=== PATIENT | male | born 1950 | race Caucasian/White ===

== ENCOUNTER 2023-08-02 19:51 | Emergency (ER) | payer MEDICARE, SELFPAY ==
[2023-08-02] VITALS (11 sets, daily range): BP systolic 95–132; BP diastolic 63–83; PULSE 78–105; RESP 16–40; TEMP 36.4; O2SAT 93–100; BMI 24.3
--- NOTE | 2023-08-02 19:52 | XRR_ITS ---
PROCEDURE INFORMATION: Exam: XR Chest Exam date and time: 08/02/2023 8:05 PM Age: 73 years old Clinical indication: Pain; Chest pressure; Additional info: Cp TECHNIQUE: Imaging protocol: Radiologic exam of the chest. Views: 1 view. COMPARISON: No relevant prior studies available. FINDINGS: Lungs: Unremarkable. No consolidation. Pleural spaces: Unremarkable. No pleural effusion. No pneumothorax. Heart/Mediastinum: Unremarkable. No cardiomegaly. Bones/joints: Unremarkable. XR/XR chest 1V portable [id number] IMPRESSION: No acute findings.
--- NOTE | 2023-08-02 19:52 | ECG_ITS ---
[facility] Test Date: 2023-08-02 Pat Name: Mariusz Ac Department: Room: Gender: Male Lamination Builder: : 1950 Requested By: Lazarus Galeas Order Number: [id number] Jasbir MD: Neeraj Mcfarland M.D. Measurements Intervals Moody Rate: 80 P: 0 IA: 0 QRS: 44 QRSD: 100 T: 14 QT: 373 QTc: 430 Interpretive Statements ATRIAL FIBRILLATION INCOMPLETE RIGHT BUNDLE BRANCH BLOCK [90+ ms QRS DURATION, TERMINAL R IN V1/V2, 40+ ms S IN I/aVL/V4/V5/V6] ABNORMAL RHYTHM ECG No previous ECG available for comparison Electronically Signed On 08-03-2023 0:32:03 DATA WAREHOUSE ANALYST by Neeraj Mcfarland M.D. [email or web address]
--- NOTE | 2023-08-02 20:30 | CTR_ITS ---
PROCEDURE INFORMATION: Exam: CT Abdomen And Pelvis With Contrast Exam date and time: 08/02/2023 9:15 PM Age: 73 years old Clinical indication: Abdominal pain; Generalized; Additional info: Ruq pain, n/v TECHNIQUE: Imaging protocol: Computed tomography of the abdomen and pelvis with contrast. Radiation optimization: All CT scans at this facility use at least one of these dose optimization techniques: automated exposure control; mA and/or kV adjustment per patient size (includes targeted exams where dose is matched to clinical indication); or iterative reconstruction. Contrast material: OMNI 350; Contrast volume: 100 ml; Contrast route: INTRAVENOUS (IV); REPORTING DATA: Count of CT and Cardiac NM exams in prior 12 months: This patient has received 0 known CTs and 0 known cardiac nuclear medicine studies in the 12 months prior to the current study. COMPARISON: CR (CHEST, ) 08/02/2023 8:05 PM RADIATION DOSE METRICS: Total DLP (mGy-cm): 601 FINDINGS: Lungs: The visualized lung bases are clear. Diaphragm: Tiny hiatal hernia. Liver: Left hepatic 1.8 cm cyst. No enhancing mass. Gallbladder and bile ducts: No calcified gallstones or biliary dilation identified. Pancreas: Unremarkable with no suspicious mass. No ductal dilation. Spleen: The spleen is not enlarged. No suspicious enhancing mass is noted. Adrenal glands: Normal. No mass. Kidneys and ureters: Small left extrarenal pelvis likely. There is moderate right hydronephrosis, likely from compressive changes in right ureter. Stomach and bowel: The colon is rather fecal filled. No small bowel obstruction, abscess or free air. Appendix: No evidence of appendicitis. Intraperitoneal space: Unremarkable. No free air. No suspicious fluid collection. 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 This measures 11.1 x 10.7 cm x 12.7 cm in length. The opacified irregular portion is seen to the right and measures up to about 66 x 50 mm. There is irregular internal mural thrombus with surrounding mild heterogeneity and there is severe mass effect on the adjacent right iliac arteries. The left common iliac artery measures up to 42 x 34 mm. There is also contrast present in the adjacent IVC, which may imply AVF formation. The IVC is prominent in size. Mild diffuse vascular calcification. 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 The right common iliac artery measures 2.9 cm. Lymph nodes: Mild retroperitoneal lymphadenopathy. Urinary bladder: Displaced to left by aneurysm. Reproductive: The prostate is quite large. Bones/joints: No acute fracture. Soft tissues: No acute or suspicious finding noted. CT/CT abdomen pelvis w con* [id number] IMPRESSION: 1. 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 This causes severe adjacent mass effect and is detailed above. Advise emergent endovascular consultation. 2. Concern for AVF formation with the adjacent IVC, as above. This is inferred because of the density of the IVC. 3. Moderate right hydronephrosis, likely due to compression of right mid ureter by aneurysm. 4. 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 Diffuse iliac ectasia. Other aneurysms, as above. 5. Call to provider has been initiated.
--- NOTE | 2023-08-02 20:32 | ED_ITS ---
Documented by User: ABIGAIL Shook 08/02/23 23:58 HPI - Abdominal Pain 2 General: Chief Complaint: Abdominal Pain Stated Complaint: right side below rib cage pain Time Seen by Provider: 08/02/23 20:16 Source: patient and family Mode of arrival: ambulatory Limitations: no limitations History of Present Illness: Patient is a very nice 73-year-old healthy male with no known PMH who presents to ED today with complaint of right upper quadrant abdominal pain. Patient states he has intermittently had discomfort to the right side of his abdomen for 30 years that seems to be position dependent citing an example that if he sits at a desk for too long he will have to take a break and apply heat to to the area. He states approximately 2 to 3 days ago he began experiencing a fair deal of discomfort accompanied with nausea and vomiting which he has never had before. He is reporting normal bowel movements. He has no urinary symptoms. No changes to the color of his urine. No yellowing to his skin or eyes. He states he takes no medications. Denies drug use or alcohol use. Denies shortness of breath or difficulty breathing. No fevers. MD elicited complaint: abdominal pain Pertinent past history: none Onset (ago): day(s) Pain Consistency: constant Location: RUQ Severity: severe Pain scale (0-10): 8 Radiation: none Migration to: no migration Relieving factors: other (pressure to affected area possibly?) Associated Symptoms: Reports nausea and vomiting; Denies change in bowel habits, chills, dysuria, fever(s), hematochezia, hematemesis and melena Review of Systems 2 Const: Denies: fever(s), chills, body aches, fatigue or malaise ENMT: Denies: throat pain or odynophagia Card: Denies: chest pain Resp: Denies: dyspnea GI: Reports: abdominal pain, nausea and vomiting; Denies: hematemesis, change in bowel habits, hematochezia or melena : Denies: flank pain, difficulty urinating, dysuria, urinary frequency, urinary urgency or urinary hesitancy Musc: Denies: neck pain, back pain, extremity pain or joint pain Skin/Breast: Denies: rash Neuro: Denies: headache(s), numbness in extremities, weakness in extremities or sensory changes Physical Exam 2 Const: COMMON NORMALS: no acute distress, average body habitus, patient oriented x3, no limitations, healthy appearing, alert and well nourished G ENERAL APPEARANCE: cooperative ORIENTATION/CONSCIOUSNESS: Yes awake, Yes oriented to person, Yes oriented to place and Yes oriented to time HENMT: COMMON NORMALS: normocephalic and atraumatic HEAD & SCALP: normal to inspection, normocephalic and atraumatic Eye: COMMON NORMALS: no scleral icterus Chest: COMMONS NORMALS: normal inspection of the chest and normal palpation of entire chest wall Resp: COMMON NORMALS: normal respiratory effort and clear to auscultation bilaterally AUSCULTATION: clear to auscultation bilaterally Cardio: COMMON NORMALS: regular rate and regular rhythm RATE: regular rate RHYTHM: regular rhythm GI: COMMON NORMALS: Normal to inspection, nondistended, normoactive bowel sounds present, Soft to palpation, No hepatosplenomegaly present and no masses INSPECTION: Yes normal to inspection AUSCULTATION: Yes normoactive bowel sounds PALPATION: Yes Soft to palpation, Yes Tenderness to palpation present (GI) (states palpation seems to ease his discomfort slightly ) Details: RUQ, No Guarding due to palpation present (GI), No Rigid due to palpation and Yes No hepatosplenomegaly present : COMMON NORMALS: Yes no CVA tenderness BLADDER/KIDNEY EXAM: Yes no CVA tenderness Back/Pelvis: COMMON NORMALS: no CVA tenderness, thoracic and lumbar spine normal to inspection and no thoracic nor lumbar tenderness Extremity: COMMON NORMALS: normal to inspection GENERAL: Yes normal exam except as noted Neuro: KASSIE COMA SCALE: document GCS findings [place] coma scale eye opening: Spontaneous [place] coma scale verbal response: Orientated [place] coma scale motor response: Obey commands [place] coma scale total score: 15 COMMON NORMALS: patient oriented x3, moves all extremities, no focal motor deficits and no sensory deficits noted SENSORIUM/ORIENTATION: Yes alert, Yes oriented to person, Yes oriented to place and Yes oriented to time Skin: COMMON NORMALS: no rashes or lesions noted GENERAL SKIN EXAM: no rashes or lesions noted Course 2 Vital Signs: Vital signs: Vital Signs Temperature 97.6 F 08/02/23 19:58 Pulse Rate 82 08/02/23 22:53 Respiratory Rate 20 H 08/02/23 22:53 Blood Pressure 129/79 08/02/23 22:53 Pulse Oximetry 98 08/02/23 22:53 Oxygen Delivery Me thod Room Air 08/02/23 22:53 MDM - Abdominal Pain Medical Decision Making This patient is a nice 73-year-old male with no known past medical history here for complaints of right upper abdominal pain that he states has been present for over 30 years although acutely worsened approximately 2 to 3 days ago and is now accompanied with nausea and vomiting. He arrives in no acute distress with stable vital signs. His blood work is completely unremarkable. 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 This was causing severe adjacent mass effect. Concern for possible AVF formation with the adjacent IVC. Dr. Galeas was immediately made aware of critical findings. Again vital signs are stable at this time. We immediately began to work on transfer. [facility] was on divert. [facility] did not have any ICU beds. There were no options to fly patient due to weather-they were not able to give us a flyable direction at this time. I was able to contact in [place] and speak to vascular surgeon Dr. Molina who accepted patient. Unfortunately current EMS transport times are a minimum of 4 hours to cloth picker patient. We contacted multiple other transport services to try to get patient transferred but were unsuccessful. We had powerhouse tender also working on transferring patient. Ultimately the family alerted us that they would like to transfer patient by private vehicle. I did not recommend this. Patient as well as both of his sons were made aware of the risk including rupture and . They verbalized understanding and proceeded with signing out AMA. We did alert who stated they would continue to hold patient's bed. ICU surgical bed 4. Patient and his sons were given detailed information on address, where to check in, bed assigned, and vascular surgeon when they arrive. Medical Records I reviewed the patient's medical records. Lab Data I reviewed the patient's lab results. 08/02/23 20:39 08/02/23 20:39 Labs/Radiology: Radiology Impressions Chest X-Ray 08/02/23 19:52 IMPRESSION: No acute findings. Abdomen/Pelvis CT 08/02/23 20:30 IMPRESSION: 1. 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 This causes severe adjacent mass effect and is detailed above. Advise emergent endovascular consultation. 2. Concern for AVF formation with the adjacent IVC, as above. This is inferred because of the density of the IVC. 3. Moderate right hydronephrosis, likely due to compression of right mid ureter by aneurysm. 4. 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 Diffuse iliac ectasia. Other aneurysms, as above. 5. Call to provider has been initiated. ADDENDUM: 08/02/[address] Green confirms report receipt via [employer] Teams internal communications. Laboratory Results WBC 6.72 10^3/uL (3.29-11.43) 08/02/23 20:39 RBC 4.01 10^6/uL (3.85-5.65) 08/02/23 20:39 Hgb 12.60 g/dL (11.27-16.99) 08/02/23 20:39 Hct 38.1 % (37-53) 08/02/23 20:39 MCV 95.0 fl (82-101) 08/02/23 20:39 MCH 31.4 pg (27-33) 08/02/23 20:39 MCHC 33.1 g/dL (30-55) 08/02/23 20:39 RDW 12.4 % (12.1-15.1) 08/02/23 20:39 Plt Count 281 10^3/cmm (157-399) 08/02/23 20:39 MPV 9.7 fL (7.4-10.4) 08/02/23 20:39 Neut % (Auto) 68.3 % 08/02/23 20:39 Lymph % (Auto) 18.3 % 08/02/23 20:39 Davi[place] % (Auto) 9.7 % 08/02/23 20:39 Eos % (Auto) 2.7 % 08/02/23 20:39 Baso % (Auto) 0.4 % 08/02/23 20:39 Neut # (Auto) 4.59 10^3/uL (1.8-7.7) 08/02/23 20:39 Lymph # (Auto) 1.2 10^3/uL (0.8-4.8) 08/02/23 20:39 Daviess # (Auto) 0.7 10^3/uL (0.2-0.9) 08/02/23 20:39 Eos # (Auto) 0.2 10^3/uL (0.0-0.8) 08/02/23 20:39 Baso # (Auto) 0.0 10^3/uL (0.0-0.1) 08/02/23 20:39 Nucleated RBC % (auto) 0 % 08/02/23 20:39 Nucleated RBCs # 0.0 /100WBC 08/02/23 20:39 PT 14.40 SECONDS (12.1-14.9) 08/02/23 20:39 INR 1.09 (0.8-1.2) 08/02/23 20:39 APTT 31.1 SECONDS (23.9-36.7) 08/02/23 20:39 Sodium 138 mmol/L (136-145) 08/02/23 20:39 Potassium 3.8 mmol/L (3.5-5.1) 08/02/23 20:39 Chloride 102 mmol/L (98-107) 08/02/23 20:39 Carbon Dioxide 27 mmol/L (22-29) 08/02/23 20:39 Anion Gap 12.8 (5-19) 08/02/23 20:39 BUN 17 mg/dL (8-23) 08/02/23 20:39 Creatinine 1.0 mg/dL (0.7-1.2) 08/02/23 20:39 GFR Calculation Not Reportable 08/02/23 20:39 Glucose 95 mg/dL (65-115) 08/02/23 20:39 POC Glucose 98 mg/dL (70-110) 08/02/23 20:53 Calculated Osmolality 287 mOsm/kg (285-295) 08/02/23 20:39 Calcium 9.2 mg/dL (8.5-10.5) 08/02/23 20:39 Total Bilirubin 0.5 mg/dL (0.15-1.2) 08/02/23 20:39 AST 18 U/L (0-40) 08/02/23 20:39 ALT 11 U/L (0-41) 08/02/23 20:39 Alkaline Phosphatase 92 U/L (40-130) 08/02/23 20:39 Total Protein 7.0 g/dL (6.6-8.7) 08/02/23 20:39 Albumin 3.8 g/dL (3.5-5.2) 08/02/23 20:39 Globulin 3.2 g/dL (1.3-4.6) 08/02/23 20:39 Lipase 18 U/L (13-60) 08/02/23 20:39 Urine Color Yellow (Yellow) 08/02/23 19:55 Urine Appearance Clear (CLEAR) 08/02/23 19:55 Urine pH 6 (5-7) 08/02/23 19:55 Ur Specific Barnum 1.010 (1.005-1.030) 08/02/23 19:55 Urine Protein Neg (Negative) 08/02/23 19:55 Urine Glucose (UA) Norm (Normal) 08/02/23 19:55 Urine Ketones Negative (Negative) 08/02/23 19:55 Urine Blood Neg (Negative) 08/02/23 19:55 Urine Nitrate Negative (Negative) 08/02/23 19:55 Urine Bilirubin Neg (Negative) 08/02/23 19:55 Urine Urobilinogen 1 mg/dL (Negative) H 08/02/23 19:55 Ur Leukocyte Esterase Negative (Negative) 08/02/23 19:55 All radiology interpretation(s) finalized by discharge Discharge Plan Discharge Patient Disposition: Left Against Medical Advice 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 Condition: Stable Coding Level of Care Code ED Radiographer Angiogram for Chg Fwd Documented by User: Lazarus Galeas MD 08/03/23 09:55 HPI - Abdominal Pain 2 General: Chief Complaint: Abdominal Pain Stated Complaint: right side below rib cage pain Time Seen by Provider: 08/02/23 20:16 Physical Exam 2 Neuro: KASSIE COMA SCALE: document GCS findings [place] coma scale total score: 15 Course 2 Vital Signs: Vital signs: Vital Signs Temperature 97.6 F 08/02/23 19:58 Pulse Rate 82 08/02/23 22:53 Respiratory Rate 20 H 12/26/23 22:53 Blood Pressure 129/79 12/26/23 22:53 Pulse Oximetry 98 08/02/23 22:53 Oxygen Delivery Me thod Room Air 08/02/23 22:53 MDM - Abdominal Pain Medical Decision Making This patient is a nice 73-year-old male with no known past medical history here for complaints of right upper abdominal pain that he states has been present for over 30 years although acutely worsened approximately 2 to 3 days ago and is now accompanied with nausea and vomiting. He arrives in no acute distress with stable vital signs. His blood work is completely unremarkable. 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 This was causing severe adjacent mass effect. Concern for possible AVF formation with the adjacent IVC. Dr. Galeas was immediately made aware of critical findings. Again vital signs are stable at this time. We immediately began to work on transfer. [facility] was on divert. [facility] did not have any ICU beds. There were no options to fly patient due to weather-they were not able to give us a flyable direction at this time. I was able to contact in [place] and speak to vascular surgeon Dr. Molina who accepted patient. Unfortunately current EMS transport times are a minimum of 4 hours to cloth picker patient. We contacted multiple other transport services to try to get patient transferred but were unsuccessful. We had powerhouse tender also working on transferring patient. Ultimately the family alerted us that they would like to transfer patient by private vehicle. I did not recommend this. Patient as well as both of his sons were made aware of the risk including rupture and . They verbalized understanding and proceeded with signing out AMA. We did alert who stated they would continue to hold patient's bed. ICU surgical bed 4. Patient and his sons were given detailed information on address, where to check in, bed assigned, and vascular surgeon when they arrive. I have seen patient with above midlevel I discussed him to his CT findings and would have to transfer discussed him that it was going to likely be a delayed transfer as well Lab Data 08/02/23 20:39 08/02/23 20:39 Labs/Radiology: Radiology Impressions Chest X-Ray 08/02/23 19:52 IMPRESSION: No acute findings. Abdomen/Pelvis CT 08/02/23 20:30 IMPRESSION: 1. 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 This causes severe adjacent mass effect and is detailed above. Advise emergent endovascular consultation. 2. Concern for AVF formation with the adjacent IVC, as above. This is inferred because of the density of the IVC. 3. Moderate right hydronephrosis, likely due to compression of right mid ureter by aneurysm. 4. 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 Diffuse iliac ectasia. Other aneurysms, as above. 5. Call to provider has been initiated. ADDENDUM: 08/02/232207 Provider Dr. Green confirms report receipt via [employer] internal communications. Laboratory Results WBC 6.72 10^3/uL (3.29-11.43) 08/02/23 20:39 RBC 4.01 10^6/uL (3.85-5.65) 08/02/23 20:39 Hgb 12.60 g/dL (11.27-16.99) 08/02/23 20:39 Hct 38.1 % (37-53) 08/02/23 20:39 MCV 95.0 fl (82-101) 08/02/23 20:39 MCH 31.4 pg (27-33) 08/02/23 20:39 MCHC 33.1 g/dL (30-55) 08/02/23 20:39 RDW 12.4 % (12.1-15.1) 08/02/23 20:39 Plt Count 281 10^3/cmm (157-399) 08/02/23 20:39 MPV 9.7 fL (7.4-10.4) 08/02/23 20:39 Neut % (Auto) 68.3 % 08/02/23 20:39 Lymph % (Auto) 18.3 % 08/02/23 20:39 [place] % (Auto) 9.7 % 08/02/23 20:39 Eos % (Auto) 2.7 % 08/02/23 20:39 Baso % (Auto) 0.4 % 08/02/23 20:39 Neut # (Auto) 4.59 10^3/uL (1.8-7.7) 08/02/23 20:39 Lymph # (Auto) 1.2 10^3/uL (0.8-4.8) 08/02/23 20:39 [place] # (Auto) 0.7 10^3/uL (0.2-0.9) 08/02/23 20:39 Eos # (Auto) 0.2 10^3/uL (0.0-0.8) 08/02/23 20:39 Baso # (Auto) 0.0 10^3/uL (0.0-0.1) 08/02/23 20:39 Nucleated RBC % (auto) 0 % 08/02/23 20:39 Nucleated RBCs # 0.0 /100WBC 08/02/23 20:39 PT 14.40 SECONDS (12.1-14.9) 08/02/23 20:39 INR 1.09 (0.8-1.2) 08/02/23 20:39 APTT 31.1 SECONDS (23.9-36.7) 08/02/23 20:39 Sodium 138 mmol/L (136-145) 08/02/23 20:39 Potassium 3.8 mmol/L (3.5-5.1) 08/02/23 20:39 Chloride 102 mmol/L (98-107) 08/02/23 20:39 Carbon Dioxide 27 mmol/L (22-29) 08/02/23 20:39 Anion Gap 12.8 (5-19) 08/02/23 20:39 BUN 17 mg/dL (8-23) 08/02/23 20:39 Creatinine 1.0 mg/dL (0.7-1.2) 08/02/23 20:39 GFR Calculation Not Reportable 08/02/23 20:39 Glucose 95 mg/dL (65-115) 08/02/23 20:39 POC Glucose 98 mg/dL (70-110) 08/02/23 20:53 Calculated Osmolality 287 mOsm/kg (285-295) 08/02/23 20:39 Calcium 9.2 mg/dL (8.5-10.5) 08/02/23 20:39 Total Bilirubin 0.5 mg/dL (0.15-1.2) 08/02/23 20:39 AST 18 U/L (0-40) 08/02/23 20:39 ALT 11 U/L (0-41) 08/02/23 20:39 Alkaline Phosphatase 92 U/L (40-130) 08/02/23 20:39 Total Protein 7.0 g/dL (6.6-8.7) 08/02/23 20:39 Albumin 3.8 g/dL (3.5-5.2) 08/02/23 20:39 Globulin 3.2 g/dL (1.3-4.6) 08/02/23 20:39 Lipase 18 U/L (13-60) 08/02/23 20:39 Urine Color Yellow (Yellow) 08/02/23 19:55 Urine Appearance Clear (CLEAR) 08/02/23 19:55 Urine pH 6 (5-7) 08/02/23 19:55 Ur Specific [place] 1.010 (1.005-1.030) 08/02/23 19:55 Urine Protein Neg (Negative) 08/02/23 19:55 Urine Glucose (UA) Norm (Normal) 08/02/23 19:55 Urine Ketones Negative (Negative) 08/02/23 19:55 Urine Blood Neg (Negative) 08/02/23 19:55 Urine Nitrate Negative (Negative) 08/02/23 19:55 Urine Bilirubin Neg (Negative) 08/02/23 19:55 Urine Urobilinogen 1 mg/dL (Negative) H 08/02/23 19:55 Ur Leukocyte Esterase Negative (Negative) 08/02/23 19:55 Discharge Plan Discharge Patient Disposition: Left Against Medical Advice 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
[2023-08-02 20:45] LABS: Basophils % 0.4 %; Eosinophils # 0.2 10^3/uL (0.0-0.8); Eosinophils % 2.7 %; Hematocrit 38.1 % (37-53); Lymphocytes # 1.2 10^3/uL (0.8-4.8); Lymphocytes % 18.3 %; Mean Corpuscular HGB Conc 33.1 g/dL (30-55); Mean Corpuscular Hemoglobin 31.4 pg (27-33); Mean Platelet Volume 9.7 fL (7.4-10.4); Monocytes # 0.7 10^3/uL (0.2-0.9); Monocytes % 9.7 %; Neutrophils # 4.59 10^3/uL (1.8-7.7); Neutrophils % 68.3 %; Nucleated Red Blood Cells % 0 %; Platelet Count 281 10^3/cmm (157-399); Red Blood Count 4.01 10^6/uL (3.85-5.65); Red Cell Distribution Width 12.4 % (12.1-15.1); White Blood Count 6.72 10^3/uL (3.29-11.43)
[2023-08-02 20:56] LABS: Glucose Point of Care 98 mg/dL (70-110)
[2023-08-02 21:01] LABS: Alanine Aminotransferase 11 U/L (0-41); Albumin Level 3.8 g/dL (3.5-5.2); Alkaline Phosphatase 92 U/L (40-130); Anion Gap 12.8 (5-19); Aspartate Amino Transferase 18 U/L (0-40); Blood Urea Nitrogen 17 mg/dL (8-23); Calcium 9.2 mg/dL (8.5-10.5); Carbon Dioxide 27 mmol/L (22-29); Chloride 102 mmol/L (98-107); Globulin 3.2 g/dL (1.3-4.6); Glucose 95 mg/dL (65-115); Lipase 18 U/L (13-60); Osmolality Calculated 287 mOsm/kg (285-295); Potassium 3.8 mmol/L (3.5-5.1); Sodium 138 mmol/L (136-145); Total Bilirubin 0.5 mg/dL (0.15-1.2)
[2023-08-02 21:10] LABS: Add Urine Microscopic? NO; Charge for UA Resulting for Rev
[2023-08-02] MEDS: iohexol 350 mg/mL 500 mL Btl (per mL) IV (21:14)
[2023-08-02 21:16] LABS: Bilirubin Urine Neg (Negative); Blood Urine Neg (Negative); Glucose Urine UA Norm (Normal); Ketones Urine Negative (Negative); Leukocyte Esterase Urine Negative (Negative); Nitrate Urine Negative (Negative); Protein Urine Neg (Negative); Urine Appearance Clear (CLEAR); Urine Color Yellow (Yellow); Urobilinogen Urine 1 mg/dL (Negative); pH Urine 6 (5-7)
[2023-08-02 21:51] LABS: INR 1.09 (0.8-1.2)
[2023-08-02 21:52] LABS: Partial Thromboplastin Time 31.1 SECONDS (23.9-36.7)
--- NOTE | 2023-08-02 23:21 | PC.NURSE ---
Son and patient were informed that staff is currently working on setting up transport for pt to accepting facility. Patient made decision to leave hospital AMA via POV instead of wait for EMS/transport, and signed AMA papers at [id number]. Patient was educated by Peter and ezequiel nurse that leaving AMA was not advised by healthcare team and patient was encouraged to stay at hospital until transport could be setup; patient decided to leave regardless and verbalized understanding to all education given. During in this time multiple transport services were contacted but unable to transfer pt at this time, staff currently working on setting up transfer. Accepting facility contacted by ER staff to inform that the pt left AMA, accepting provider, Dr. Molina, verbally agreed to still accept pt to given ICU bed upon arrival via private vehicle. Pt son was given instructions on how to check in at their ER to maintain their bed.
--- NOTE | 2023-08-02 23:24 | PC.NURSE ---
Per [facility] - ambulance crew will not be able to transport pt for for 4 hours or greater. [facility] declined due to weather Fixed wing declined due to fix wing [facility] declined transport [facility] declined transport [facility] transport [facility] declined [facility] Transfer Transport declined [facility] declined [facility] no Answer [facility] No transport available
--- NOTE | 2023-08-02 23:37 | PC.NURSE ---
Multiple updates given to pt and family about transfer by ER physician, ER PA and several nursing staff. Family and pt ultimately decided to leave AMA due to length of time it will take [facility] to respond for transport. PA discussed extensively the possible repercussions of leaving the hospital. Pt was A&Ox4, asked appropriate questions and made the decision to leave with appropriate decision making skills.
--- NOTE | 2023-08-02 23:48 | PC.NURSE ---
Pt signed out AMA after being accepted to [facility] in [place], [place]. ER UC, ER assembly department supervisor, and Brand Marketing Manager RN attempted contacting multiple transport services with no success to obtain transport for a life threat pt. Pt decided to leave AMA to drive to [facility] via POV, pt educated on risk of leaving AMA by provider and pt care RN, pt verbalized understanding and signed AMA paperwork. At the time of pt signing out AMA staff was still attempting to set up transport for pt. Provider talked to accepting provider stating that pt left AMA, accepting provider stated they would still accept pt. Pt son educated on the process to check in through [facility]'s ER to maintain bed and sent with paperwork to give to [facility]. Pt nurse called report to nurse at [facility] @[phone].
--- NOTE | 2023-08-02 23:55 | PC.NURSE ---
Report had been called to Birgit Colón RN at [facility] [place]. All questions and concerns addressed at time of report.
== END 2023-08-03 00:28 | disposition left against medical advice (07) ==
PROVIDERS: Emergency Provider Physician Assistant
DX: I72.3 Aneurysm of iliac artery (principal); Z53.29 Procedure and treatment not carried out because of patient's decision for other reasons
CPT/HCPCS: 36416; 71045; 74177; 80053; 81003; 82962; 83690; 85025; 85610; 85730; 93005; 99285; Q9967

== ENCOUNTER 2023-09-06 14:28 | Outpatient (CLI) | payer MEDICARE, SELFPAY ==
--- NOTE | 2023-09-06 14:35 | CT_ITS ---
WS: [id number] CTA THORACIC AORTA WITH AND WITHOUT CONTRAST. HISTORY: S/P R HYPOGASTRIC COILING REPAIR S/P ILIAC ARTERY REPAIR TECHNIQUE: CT imaging of the thorax is performed with and without contrast. After noncontrast imaging is performed, CT angiogram is performed during injection of Omnipaque 350; 85 mL IV.. Sagittal and c oronal reconstructions, sagittal and coronal MIP imaging is submitted. All CT scans at [facility] use at least one of these dose optimization techniques: automated exposure control; mA and/or kV adjustment per patient size (includes targeted exams where dose is matched to clinical indication); or iterative reconstruction. DLP: 2620.81 mGy.cm COMPARISON: No similar studies. Normal sized thoracic aorta. Diameter ascending aorta 3.7 cm. Normal descending aorta. Very minimal c alcified plaque and intimal thickening through the thoracic aortic arch. Great vessels are normal. Pu lmonary artery is normal. There is mild bilateral atrial enlargement. No RIGHT heart strain. No peric ardial or pleural effusion. Mediastinal and hilar lymph nodes are very slightly enlarged measuring up to 1.2 cm in short axis lizeth meter. Through the upper abdomen a simple hepatic cyst in the LEFT lobe is identified measuring 1.7 cm. Ther e is a mildly bulbous appearance of the celiac axis. Just distal to the bifurcation of the celiac axi s the diameter is 1.2 cm. No splenic artery aneurysm. 8 mm RIGHT renal cyst. Mild thoracic spondylitic changes. No bone abnormality. IMPRESSION: 1. No thoracic aortic aneurysm or dissection. 2. 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 3. Mild biatrial enlargement. 4. Indeterminate bilateral hilar and mediastinal lymph node measurements.
--- NOTE | 2023-09-06 14:43 | CTR_ITS ---
PROCEDURE INFORMATION: Exam: CTA Abdominal Aorta and Bilateral Lower Extremities (Run-off) With Contrast Exam date and time: 09/06/2023 3:39 PM Age: 73 years old Clinical indication: Screening exam; Purpose: RT hypogastric coiling repair and RT iliac artery repair; Prior surgery; Surgery date: 6+ months; Additional info: S/P R hypogastric coiling repair and iliac artery repair TECHNIQUE: Imaging protocol: Computed tomographic angiography of the of the abdominal aorta, pelvis and bilateral lower extremities with contrast. 3D rendering (Not supervised by radiologist): MIP and/or 3D reconstructed images were created by the technologist. Radiation optimization: All CT scans at this facility use at least one of these dose optimization techniques: automated exposure control; mA and/or kV adjustment per patient size (includes targeted exams where dose is matched to clinical indication); or iterative reconstruction. Contrast material: OMNI 350; Contrast volume: 95 ml; Contrast route: INTRAVENOUS (IV); COMPARISON: CT abdomen pelvis w con* [id number] 08/02/2023 9:15 PM RADIATION DOSE METRICS: Total DLP (mGy-cm): 2620 FINDINGS: Aorta: See Right iliac arteries finding. Celiac trunk and mesenteric arteries: No occlusion or significant stenosis. 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 Renal arteries: No occlusion or significant stenosis. Right iliac arteries: There is an 11 cm diameter completely thrombosed aneurysm lying in the right-side of the pelvis. The aneurysm appears to arise from the right internal iliac artery and there has been stent graft placement within the common iliac artery. The stent graft is widely patent. There is no evidence of endoleak. A 4 cm aneurysm involves the left common iliac artery. I see no sign of rupture. There is normal flow into the common femoral arteries bilaterally. I see no significant arterial disease involving either leg. Prominent superficial veins are noted in the lower legs bilaterally. Right femoral/popliteal arteries: No occlusion or significant stenosis. Right infrapopliteal arteries: No occlusion or significant stenosis. Left iliac arteries: See Right iliac arteries finding. Left femoral/popliteal arteries: No occlusion or significant stenosis. Left infrapopliteal arteries: No occlusion or significant stenosis. Liver: No mass. Gallbladder and bile ducts: Unremarkable. No calcified stones. No ductal dilation. Pancreas: Unremarkable. No mass. No ductal dilation. Spleen: Normal. No splenomegaly. Adrenal glands: Normal. No mass. Kidneys and ureters: Normal. No mass. Stomach and bowel: Unremarkable. No obstruction. No mucosal thickening. Appendix: No evidence of appendicitis. Urinary bladder: Unremarkable. No mass. Reproductive: Unremarkable as visualized. Intraperitoneal space: Unremarkable. No free air. No significant fluid collection. Lymph nodes: No lymphadenopathy. Bones/joints: No acute fracture. No dislocation. Soft tissues: Unremarkable. 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
[2023-09-06] MEDS: iohexol 350 mg/mL 500 mL Btl (per mL) IV ×2 (16:01→16:02)
== END 2023-09-06 14:29 | disposition home or self-care (01) ==
LOC: RAD 14:29
PROVIDERS: Visit Provider Clinical Nurse Specialist Adult Health
DX: I72.3 Aneurysm of iliac artery (principal); I72.8 Aneurysm of other specified arteries; Z98.890 Other specified postprocedural states; Z95.828 Presence of other vascular implants and grafts; S35.511A Injury of right iliac artery, initial encounter; X58.XXXA Exposure to other specified factors, initial encounter; I51.7 Cardiomegaly
CPT/HCPCS: 71275; 75635; Q9967

== ENCOUNTER → 2024-01-05 13:55 | Outpatient (BNVA) | payer MEDICARE, SELFPAY | PROVIDERS: Visit Provider Internal Medicine Cardiovascular Disease | DX: I48.0 Paroxysmal atrial fibrillation (principal); I72.3 Aneurysm of iliac artery; M79.89 Other specified soft tissue disorders; Z79.01 Long term (current) use of anticoagulants; Z79.82 Long term (current) use of aspirin | CPT/HCPCS: 99204 ==

== ENCOUNTER 2024-01-10 11:29 | Outpatient (CLI) | payer MEDICARE, SELFPAY ==
--- NOTE | 2024-01-10 11:34 | CT_ITS ---
WS: [id number] CTA THORACIC AORTA WITH AND WITHOUT CONTRAST HISTORY: COMMON ILLIAC ANEURYSM/SP ENDOVASCULAR ANEURYSM REPAIR TECHNIQUE: CT imaging of the thorax is performed with and without contrast. After noncontrast imaging is performed, CT angiogram is performed during injection of Omnipaque 350; 100 mL IV.. Sagittal and coronal reconstructions, sagittal and coronal MIP imaging is submitted. All CT scans at [facility] use at least one of these dose optimization techniques: automated exposure control; mA and/or k V adjustment per patient size (includes targeted exams where dose is matched to clinical indication); or iterative reconstruction. DLP: 2450.12 mGy.cm COMPARISON: 09/06/2023 Normal sized thoracic aorta. No dissection or aneurysm. Very minimal atherosclerotic plaque through t he aortic arch. Sinus of Valsalva measures 3.9 cm. Sinotubular junction 2.9 cm. Ascending aorta racquel l at 3.3 cm. Normal descending thoracic aorta diameter. There is a small amount of plaque. No dissect ion. Suprarenal aorta with mild atherosclerotic plaque. Intact celiac axis. Reidentified is a 1.5 cm aneur ysmal dilatation of the proximal celiac axis. There is no thrombus or occlusion. Normal size SMA with no thrombus. No pulmonary mass or nodule. Thin linear areas of scarring in the lingula and at the RIGHT lung base. Biatrial enlargement similar to the prior examination. No RIGHT heart strain. RIGHT ventricle is als o slightly dilated. Reidentified is indeterminate mediastinal and hilar lymph nodes. Subcarinal lymph node 1.5 cm. Largest hilar lymph node on the RIGHT is 1.4 cm. No progression since 09/06/2023. LEFT lobe hepatic cyst 1.7 cm. No adrenal mass. Thoracic spondylosis. CT/CT angio chest [id number] IMPRESSION: 1. No thoracic aortic aneurysm. 2. Mild atherosclerosis thoracic aorta. 3. Stable celiac axis aneurysm at 1.5 cm. No thrombus or occlusion. 4. Reidentified LEFT lobe hepatic cyst. 5. Continued biatrial and RIGHT ventricular enlargement.
--- NOTE | 2024-01-10 11:37 | CTR_ITS ---
PROCEDURE INFORMATION: Exam: CTA Abdominal Aorta and Bilateral Lower Extremities (Run-off) With Contrast Exam date and time: 01/10/2024 1:10 PM Age: 73 years old Clinical indication: Condition or disease; Other: Common iliac aneurysm; Prior surgery; Surgery date: 1-6 months; Surgery type: Bilat iliac aneurysm repair; Additional info: Common iliac aneurysm/sp endovascular aneurysm repair TECHNIQUE: Imaging protocol: Computed tomographic angiography of the of the abdominal aorta, pelvis and bilateral lower extremities with contrast. 3D rendering (Not supervised by radiologist): MIP and/or 3D reconstructed images were created by the technologist. Radiation optimization: All CT scans at this facility use at least one of these dose optimization techniques: automated exposure control; mA and/or kV adjustment per patient size (includes targeted exams where dose is matched to clinical indication); or iterative reconstruction. Contrast material: OMNI 350; Contrast volume: 125 ml; Contrast route: INTRAVENOUS (IV); COMPARISON: CT angio abd aorta runof [id number] 09/06/2023 3:39 PM RADIATION DOSE METRICS: Total DLP (mGy-cm): 2450.12 FINDINGS: Aorta: No aortic aneurysm. No aortic dissection. Patent aorto bi-iliac stent noted. Celiac trunk and mesenteric arteries: Stable aneurysm of the celiac trunk measuring 1.5 cm. Renal arteries: Duplicated bilateral renal arteries. The origins of the accessory arteries supplying the inferior poles of the kidneys are excluded by the aorto bi-iliac stent. Right iliac arteries: Redemonstrated right common iliac aneurysms measuring up to 2.7 cm in size with patent stent in place. Redemonstrated left common iliac aneurysm measuring 3.4 cm in size with patent stent in place. No evidence of endoleak. Similar appearance of a thrombosed 11 cm aneurysm, likely originating from the right internal iliac artery. Right femoral/popliteal arteries: No occlusion or significant stenosis. Right infrapopliteal arteries: No occlusion or significant stenosis. Left iliac arteries: No occlusion or significant stenosis. Left femoral/popliteal arteries: No occlusion or significant stenosis. Left infrapopliteal arteries: No occlusion or significant stenosis. Liver: 1.9 cm simple cyst noted in the left hepatic lobe. Gallbladder and bile ducts: Cholecystectomy. No ductal dilation. Pancreas: Unremarkable. No mass. No ductal dilation. Spleen: Normal. No splenomegaly. Adrenal glands: Normal. No mass. Kidneys and ureters: Segmental areas of hypoenhancement of the inferior poles of the kidney is supplied by the accessory renal arteries. Stomach and bowel: Unremarkable. No obstruction. No mucosal thickening. Appendix: No evidence of appendicitis. Urinary bladder: Unremarkable. No mass. Reproductive: Unremarkable as visualized. Intraperitoneal space: Unremarkable. No free air. No significant fluid collection. Lymph nodes: No lymphadenopathy. Bones/joints: No acute fracture. No dislocation. Soft tissues: Unremarkable. CT/CT angio abd aorta runof [id number] IMPRESSION: 1. Interval placement of aorto bi-iliac stent. There are bilateral accessory renal arteries supplying the inferior poles of the kidneys. The stent is covering the origins of the accessory arteries and there is associated segmental hypoenhancement of the inferior poles of the kidneys. This could progress to renal infarcts and atrophy of these regions. 2. Stable appearance of the bilateral common iliac aneurysms with patent stents in place. No evidence of endoleak. 3. Large thrombosed aneurysm in the region of the right internal iliac artery measuring 11 cm in size is not significantly changed from prior study. 4. Stable appearance of a celiac trunk aneurysm measuring 1.5 cm in size.
[2024-01-10 13:08] LABS: Blood Urea Nitrogen 19 mg/dL (8-23)
[2024-01-10] MEDS: iohexol 350 mg/mL 500 mL Btl (per mL) IV ×2 (13:42→13:43)
== END 2024-01-10 11:30 | disposition home or self-care (01) ==
LOC: RAD 11:29
PROVIDERS: Radiology Neuroradiology; Visit Provider Clinical Nurse Specialist Adult Health
DX: I72.3 Aneurysm of iliac artery (principal); I72.8 Aneurysm of other specified arteries
CPT/HCPCS: 71275; 75635; 82565; 84520; Q9967

== ENCOUNTER 2024-04-27 19:56 | Emergency (ER) | payer OTHER, SELFPAY ==
[2024-04-27 20:06] VITALS: BP 134/97; PULSE 80; RESP 18; TEMP 36.7; O2SAT 94; BMI 26.4
[2024-04-27 20:09] LABS: Basophils % 0.3 %; Eosinophils # 0.1 10^3/uL (0.0-0.8); Eosinophils % 1.9 %; Hematocrit 44.8 % (37-53); Lymphocytes # 0.6 10^3/uL (0.8-4.8); Mean Corpuscular HGB Conc 32.8 g/dL (30-55); Mean Corpuscular Hemoglobin 30.2 pg (27-33); Mean Platelet Volume 10.1 fL (7.4-10.4); Monocytes # 0.6 10^3/uL (0.2-0.9); Monocytes % 9.2 %; Neutrophils # 4.85 10^3/uL (1.8-7.7); Neutrophils % 78.4 %; Nucleated Red Blood Cells % 0 %; Platelet Count 195 10^3/cmm (157-399); Red Blood Count 4.87 10^6/uL (3.85-5.65); Red Cell Distribution Width 14.6 % (12.1-15.1); White Blood Count 6.19 10^3/uL (3.29-11.43)
[2024-04-27 20:27] LABS: Alanine Aminotransferase 12 U/L (0-41); Albumin Level 3.9 g/dL (3.5-5.2); Alkaline Phosphatase 110 U/L (40-130); Anion Gap 12.9 (5-19); Aspartate Amino Transferase 23 U/L (0-40); Blood Urea Nitrogen 15 mg/dL (8-23); Calcium 8.4 mg/dL (8.5-10.5); Carbon Dioxide 25 mmol/L (22-29); Chloride 102 mmol/L (98-107); Creatinine Clr Calc Pharmacy 78.3781; Globulin 3.4 g/dL (1.3-4.6); Glucose 114 mg/dL (65-115); Lipase 17 U/L (13-60); Osmolality Calculated 284 mOsm/kg (285-295); Potassium 3.9 mmol/L (3.5-5.1); Sodium 136 mmol/L (136-145); Total Bilirubin 0.8 mg/dL (0.15-1.2); Total Protein 7.3 g/dL (6.6-8.7)
[2024-04-27 20:36] VITALS: BP 144/91; PULSE 95; RESP 18; O2SAT 93
--- NOTE | 2024-04-27 20:42 | ECG_ITS ---
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 Measurements Intervals [place] Rate: 74 P: 0 [place]: 0 QRS: -40 QRSD: 101 T: 50 QT: 381 QTc: 423 Interpretive Statements ATRIAL FIBRILLATION LEFT AXIS DEVIATION [QRS AXIS < -30] INCOMPLETE RIGHT BUNDLE BRANCH BLOCK [90+ ms QRS DURATION, TERMINAL R IN V1/V2, 40+ ms S IN I/aVL/V4/V5/V6] Compared to ECG 08/02/2023 20:48:01 Left-axis deviation now present Electronically Signed On 04-28-2024 20:06:26 CDT by Neeraj Mcfarland M.D. [id number] f
--- NOTE | 2024-04-27 20:44 | CTR_ITS ---
PROCEDURE INFORMATION: Exam: CTA Abdominal Aorta and Bilateral Lower Extremities (Run-off) With Contrast Exam date and time: 04/27/2024 9:06 PM Age: 74 years old Clinical indication: Prior surgery; Surgery date: 6+ months; Surgery type: Aortic endograft; Patient HX: C/O dizziness with n/v and dyspnea upon exertion. Patient states he had similar symptoms with iliac aneurysmal leak. History of 11cm RT iliac aneurysm. ; Additional info: Nausea, dizzy, assess for endoleak TECHNIQUE: Imaging protocol: Computed tomographic angiography of the of the abdominal aorta, pelvis and bilateral lower extremities with contrast. 3D rendering (Not supervised by radiologist): MIP and/or 3D reconstructed images were created by the technologist. Radiation optimization: All CT scans at this facility use at least one of these dose optimization techniques: automated exposure control; mA and/or kV adjustment per patient size (includes targeted exams where dose is matched to clinical indication); or iterative reconstruction. Contrast material: OMNI 250; Contrast volume: 100 ml; Contrast route: INTRAVENOUS (IV); COMPARISON: CT angio abd aorta runof [id number] 01/10/2024 1:10 PM RADIATION DOSE METRICS: Total DLP (mGy-cm): 1007.64 FINDINGS: Aorta: Aorto bi-iliac artery stent with an excluded right common iliac artery 11 cm aneurysm, similar to prior exam. Celiac trunk and mesenteric arteries: Mid celiac artery 14.5 mm aneurysmal dilation with 50-60% luminal narrowing of the proximal celiac artery. Renal arteries: Bilateral lower pole renal hypoenhancement similar to prior exam with again seen bilateral accessory renal arteries supplying the inferior poles of the kidneys with the stent covering the origins of the accessory arteries. Right iliac arteries: See Aorta finding. Right femoral/popliteal arteries: Right popliteal artery and arteries of the calf are not well opacified, likely due to bolus timing. Right infrapopliteal arteries: See above. Left iliac arteries: Left common iliac artery 3 cm excluded aneurysm again seen similar to prior exam. Left femoral/popliteal arteries: Left popliteal artery and arteries of the calf are not well opacified likely due to bolus timing. Left infrapopliteal arteries: See above. Lungs: Bibasilar atelectasis. Heart: Cardiomegaly. Liver: Hepatic steatosis. Left hepatic lobe cyst. Gallbladder and biliary ducts: Unremarkable. No calcified stones. No ductal dilation. Pancreas: Unremarkable. No mass. No ductal dilation. Spleen: Normal. No splenomegaly. Adrenal glands: Normal. No mass. Kidneys and ureters: Normal. No mass. Stomach and bowel: Unremarkable. No obstruction. No mucosal thickening. Appendix: No evidence of appendicitis. Urinary bladder: Unremarkable. No mass. Reproductive: Unremarkable as visualized. Intraperitoneal space: Unremarkable. No free air. No significant fluid collection. Lymph nodes: No lymphadenopathy. Bones/joints: No acute fracture. No dislocation. Soft tissues: Small bilateral fat containing inguinal hernias without bowel or inflammation. CT/CT angio abd aorta runof [id number] IMPRESSION: 1. Bibasilar atelectasis. 2. Cardiomegaly. 3. Hepatic steatosis. 4. Left hepatic lobe cyst. 5. 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 6. Aorto bi-iliac artery stent with an excluded right common iliac artery 11 cm aneurysm, similar to prior exam. 7. Left common iliac artery 3 cm excluded aneurysm again seen similar to prior exam. 8. Small bilateral fat containing inguinal hernias without bowel or inflammation. 9. Bilateral lower pole renal hypoenhancement similar to prior exam with again seen bilateral accessory renal arteries supplying the inferior poles of the kidneys with the stent covering the origins of the accessory arteries. 10. Right popliteal artery and arteries of the calf are not well opacified, likely due to bolus timing. 11. Left popliteal artery and arteries of the calf are not well opacified likely due to bolus timing.
--- NOTE | 2024-04-27 20:45 | XRR_ITS ---
PROCEDURE INFORMATION: Exam: XR Chest Exam date and time: 04/27/2024 9:00 PM Age: 74 years old Clinical indication: Patient HX: Dyspnea with exertion; Additional info: Nausea/dizzy TECHNIQUE: Imaging protocol: Radiologic exam of the chest. Views: 1 view. COMPARISON: CT angio chest [id number] 01/10/2024 1:10 PM FINDINGS: Lungs: Unremarkable. No consolidation. Pleural spaces: Unremarkable. No pleural effusion. No pneumothorax. Heart/Mediastinum: Cardiomegaly. Bones/joints: Unremarkable. XR/XR chest 1V portable [id number] IMPRESSION: Cardiomegaly, negative for infiltrate.
--- NOTE | 2024-04-27 20:46 | W.ED.GENADLT ---
HPI - General Adult General: Chief complaint: Nausea/Vomiting/Diarrhea Stated complaint: nausea, extreme side pain Time Seen by Provider: 04/27/24 20:32 Source: patient and family Mode of arrival: ambulatory Limitations: no limitations History of Present Illness: Patient is a nice 74-year-old male who is known to me from previous encounter and presents to ED today along with family for complaints of nausea and dizziness. He states he was walking earlier today and felt nauseous and short of breath. 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 He was subsequently seen in [place] by vascular surgery and has had multiple surgeries for treatment. He currently has an aorto bi-iliac stent. Possible history of iliac/femoral bypass graft-patient is not sure and I do not have records. He continues to follow-up with his vascular surgeon Dr. Kam in [place]. He is not complaining of any leg pain, numbness, tingling. Of note, patient tells me he is supposed to be taking anticoagulation for atrial fibrillation but took himself off of this medication. Also stopped taking his metoprolol. States he does not wish to follow up with cardiology. Onset (ago): hour(s) Relieving factors: none Exacerbating factors: other (activity/walking) Associated symptoms: Reports dyspnea (when walking earlier) and nausea; Deny chest pain, headache(s), malaise, rash, syncope or vomiting Treatments prior to arrival: none Related Data Home Medications Medication Instructions Recorded Confirmed apixaban 5 mg tablet (Eliquis) 5 mg PO BID 01/05/24 aspirin 81 mg tablet,delayed 81 mg PO DAILY 01/05/24 release metoprolol tartrate 25 mg tablet 12.5 mg PO BID 01/05/24 Allergies Allergy/AdvReac Type Severity Reaction Status Date / Time No Known Allergies Allergy Verified 04/27/24 20:09 Review of Systems Const: Denies: fever(s), chills, body aches, fatigue or malaise Card: Reports: lightheadedness; Denies: chest pain, edema, syncope or pre-syncope Resp: Reports: dyspnea (when walking earlier) GI: Reports: abdominal pain and nausea; Denies: vomiting or hematemesis : Denies: flank pain, difficulty urinating, dysuria, urinary frequency, urinary urgency or urinary hesitancy Musc: Denies: neck pain, back pain, extremity pain, joint pain or joint swelling Skin/Breast: Denies: rash Neuro: Reports: dizziness; Denies: headache(s), numbness in extremities, weakness in extremities, sensory changes or difficulty walking [facility] ED PFSH: Medical History Aneurysm of internal iliac artery Physical Exam Const: COMMON NORMALS: no acute distress, average body habitus, patient oriented x3, no limitations, healthy appearing, alert and well nourished GENERAL APPEARANCE: cooperative Resp: COMMON NORMALS: normal respiratory effort and clear to auscultation bilaterally AUSCULTATION: clear to auscultation bilaterally Cardio: COMMON NORMALS: regular rate RATE: regular rate RHYTHM: abnormal rhythm irregularly irregular GI: COMMON NORMALS: Normal to inspection, nondistended, normoactive bowel sounds present, Soft to palpation, No hepatosplenomegaly present and no masses INSPECTION: Yes scar AUSCULTATION: Yes normoactive bowel sounds PALPATION: Yes Soft to palpation, No Guarding due to palpation present (GI), No Rigid due to palpation and Yes No hepatosplenomegaly present : COMMON NORMALS: Yes no CVA tenderness BLADDER/KIDNEY EXAM: Yes no CVA tenderness Back/Pelvis: COMMON NORMALS: no CVA tenderness and thoracic and lumbar spine normal to inspection Extremity: NARRATIVE EXTREMITY EXAM: distal pulses intact GENERAL: Yes normal exam except as noted Neuro: COMMON NORMALS: patient oriented x3, moves all extremities, no focal motor deficits, no sensory deficits noted and gait normal SENSORIUM/ORIENTATION: Yes alert Course Vital Signs: Vital signs: Vital Signs Temperature 98.0 F 04/27/24 20:06 Pulse Rate 78 04/27/24 21:46 Respiratory Rate 25 H 04/27/24 21:46 Blood Pressure 137/104 04/27/24 21:46 Pulse Oximetry 95 04/27/24 21:46 Oxygen Delivery Me thod Room Air 04/27/24 20:36 [facility] - General Adult Medical Decision Making Patient is a nice 74-year-old male here for complaints of nausea and dizziness. He was concerned for a possible endoleak involving his aorto bi-iliac graft. CT imaging showing no acute changes when compared to imaging in January. No endoleak. He does have a history of paroxysmal atrial fibrillation. He is supposed to be taking metoprolol and apixaban for this but has decided to discontinue both of these medications as he would like to try more holistic approach. Discussed the risk of untreated atrial fibrillation which he seems aware of as his can carrier and vascular surgeon has spoke to him about. Certainly the atrial fibrillation could cause nausea and dizziness. Imaging today also showing cardiomegaly. Discussed possibility for congestive heart failure. I would like him to follow-up with cardiology but patient states he most likely will not see them as they will just push meds . I would like him to reach out to his vascular surgeon next week and update her about his ED visit and imaging. Return ED precautions given. Medical Records I reviewed the patient's medical records. Lab Data I reviewed the patient's lab results. 04/27/24 20:04 04/27/24 20:04 Radiology Impressions Aorta w/Runoff CTA 04/27/24 20:44 IMPRESSION: 1. Bibasilar atelectasis. 2. Cardiomegaly. 3. Hepatic steatosis. 4. Left hepatic lobe cyst. 5. 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 6. Aorto bi-iliac artery stent with an excluded right common iliac artery 11 cm aneurysm, similar to prior exam. 7. Left common iliac artery 3 cm excluded aneurysm again seen similar to prior exam. 8. Small bilateral fat containing inguinal hernias without bowel or inflammation. 9. Bilateral lower pole renal hypoenhancement similar to prior exam with again seen bilateral accessory renal arteries supplying the inferior poles of the kidneys with the stent covering the origins of the accessory arteries. 10. Right popliteal artery and arteries of the calf are not well opacified, likely due to bolus timing. 11. Left popliteal artery and arteries of the calf are not well opacified likely due to bolus timing. Chest X-Ray 04/27/24 20:45 IMPRESSION: Cardiomegaly, negative for infiltrate. Chest CTA 04/27/24 20:54 IMPRESSION: 1. Negative for pulmonary embolus. 2. Scattered subcentimeter short axis nonspecific mediastinal lymph nodes. 3. Cardiomegaly. 4. Left hepatic lobe cyst. 5. Bilateral dependent atelectasis. Laboratory Results WBC 6.19 10^3/uL (3.29-11.43) 04/27/24 20:04 RBC 4.87 10^6/uL (3.85-5.65) 04/27/24 20:04 Hgb 14.70 g/dL (11.27-16.99) 04/27/24 20:04 Hct 44.8 % (37-53) 04/27/24 20:04 MCV 92.0 fl (82-101) 04/27/24 20: MCH 30.2 pg (27-33) 04/27/24 20: MCHC 32.8 g/dL (30-55) 04/27/24 20:04 RDW 14.6 % (12.1-15.1) 04/27/24 20:04 Plt Count 195 10^3/cmm (157-399) 04/27/24 20:04 MPV 10.1 fL (7.4-10.4) 04/27/24 20:04 Neut % (Auto) 78.4 % 04/27/24 20: Lymph % (Auto) 10.0 % 04/27/24 20: Levy % (Auto) 9.2 % 04/27/24 20:04 Eos % (Auto) 1.9 % 04/27/24 20:04 Baso % (Auto) 0.3 % 04/27/24 20: Neut # (Auto) 4.85 10^3/uL (1.8-7.7) 04/27/24 20: Lymph # (Auto) 0.6 10^3/uL (0.8-4.8) L 04/27/24 20: Levy # (Auto) 0.6 10^3/uL (0.2-0.9) 04/27/24 20:04 Eos # (Auto) 0.1 10^3/uL (0.0-0.8) 04/27/24 20:04 Baso # (Auto) 0.0 10^3/uL (0.0-0.1) 04/27/24 20:04 Nucleated RBC % (auto) 0 % 04/27/24 20: Nucleated RBCs # 0.0 /100WBC 04/27/24 20: Sodium 136 mmol/L (136-145) 04/27/24 20: Potassium 3.9 mmol/L (3.5-5.1) 04/27/24 20:04 Chloride 102 mmol/L (98-107) 04/27/24 20:04 Carbon Dioxide 25 mmol/L (22-29) 04/27/24 20:04 Anion Gap 12.9 (5-19) 04/27/24 20:04 BUN 15 mg/dL (8-23) 04/27/24 20:04 Creatinine 1.0 mg/dL (0.7-1.2) 04/27/24 20:04 GFR Calculation Not Reportable 04/27/24 20:04 Glucose 114 mg/dL (65-115) 04/27/24 20:04 Calculated Osmolality 284 mOsm/kg (285-295) L 04/27/24 20:04 Calcium 8.4 mg/dL (8.5-10.5) L 04/27/24 20:04 Total Bilirubin 0.8 mg/dL (0.15-1.2) 04/27/24 20:04 AST 23 U/L (0-40) 04/27/24 20:04 ALT 12 U/L (0-41) 04/27/24 20:04 Alkaline Phosphatase 110 U/L (40-130) 04/27/24 20:04 Troponin T Baseline 11 ng/L (0-15) 04/27/24 20:04 Troponin T 120 Minute 8.11 ng/L (0-15) 04/27/24 22:21 Delta Troponin T -2.89 ABS# (0-10) L 04/27/24 22:21 Total Protein 7.3 g/dL (6.6-8.7) 04/27/24 20:04 Albumin 3.9 g/dL (3.5-5.2) 04/27/24 20:04 Globulin 3.4 g/dL (1.3-4.6) 04/27/24 20:04 Lipase 17 U/L (13-60) 04/27/24 20:04 Urine Color Yellow (Yellow) 04/27/24 21:44 Urine Appearance Clear (CLEAR) 04/27/24 21:44 Urine pH 7.0 (5-7) 04/27/24 21:44 Ur Specific [place] 1.021 (1.005-1.030) 04/27/24 21:44 Urine Protein Negative (Negative) 04/27/24 21:44 Urine Glucose (UA) Negative (Normal) 04/27/24 21:44 Urine Ketones Negative (Negative) 04/27/24 21:44 Urine Blood Negative (Negative) 04/27/24 21:44 Urine Nitrate Negative (Negative) 04/27/24 21:44 Urine Bilirubin Negative (Negative) 04/27/24 21:44 Urine Urobilinogen 1.0 mg/dL (Negative) 04/27/24 21:44 Ur Leukocyte Esterase Negative (Negative) 04/27/24 21:44 Urine RBC 0-2 /hpf (0-2) 04/27/24 21:44 Urine WBC 0-5 /hpf (0-5) 04/27/24 21:44 Ur Squamous Epith Cells 0-5 /hpf (0-5) 04/27/24 21:44 Amorphous Sediment Not Reportable 04/27/24 21:44 Urine Bacteria None seen /hpf (NONE) 04/27/24 21:44 Hyaline Casts 0-4 /lpf H 04/27/24 21:44 All radiology interpretation(s) finalized by discharge Discharge Plan Discharge Patient Disposition: Home Clinical Impression: Aneurysm of common iliac artery Atrial fibrillation Qualifiers: Atrial fibrillation type: paroxysmal Qualified Code(s): I48.0 - Paroxysmal atrial fibrillation Condition: Stable Prescriptions: No Action Eliquis 5 mg tablet 5 mg PO BID metoprolol tartrate 25 mg tablet 12.5 mg PO BID aspirin 81 mg tablet,delayed release (DR/EC) 81 mg PO DAILY Discharge Orders: Discharge ED (Routine); Ordered 04/27/24 Ordered By: Erica Green Activity Restrictions/Additional Instructions: As we discussed, I would like you to reach out to your vascular surgeon next week so she can review ED visit and imaging. I will also place a case management referral for you to have further follow-up with cardiology for further evaluation of your atrial fibrillation and concern for possible congestive heart failure. Coding Level of Care Code ED Manual Lathe Machinist for Bonnie Mackenzie
[2024-04-27 20:54] VITALS: BP 144/91; PULSE 80; RESP 18; O2SAT 94
--- NOTE | 2024-04-27 20:54 | CTR_ITS ---
PROCEDURE INFORMATION: Exam: CTA Chest With Contrast Exam date and time: 04/27/2024 9:13 PM Age: 74 years old Clinical indication: Dyspnea and other: Dizziness; Prior surgery; Surgery date: 6+ months; Surgery type: Aortic endograft; Patient HX: C/O dizziness with n/v and dyspnea with exertion; Additional info: Nausea/dizzy; Dyspnea with exertion TECHNIQUE: Imaging protocol: Computed tomographic angiography of the chest with contrast. Exam focused on the arteries. 3D rendering (Not supervised by radiologist): MIP and/or 3D reconstructed images were created by the technologist. Radiation optimization: All CT scans at this facility use at least one of these dose optimization techniques: automated exposure control; mA and/or kV adjustment per patient size (includes targeted exams where dose is matched to clinical indication); or iterative reconstruction. Contrast material: OMNI 350; Contrast volume: 75 ml; Contrast route: INTRAVENOUS (IV); COMPARISON: CT angio chest [id number] 01/10/2024 1:10 PM RADIATION DOSE METRICS: Total DLP (mGy-cm): 390.03 FINDINGS: Pulmonary arteries: Normal. No pulmonary emboli. Aorta: Unremarkable. No aortic aneurysm. No aortic dissection. Lungs: Bilateral dependent atelectasis. Pleural spaces: Unremarkable. No pneumothorax. No pleural effusion. Heart: Cardiomegaly. Lymph nodes: Scattered subcentimeter short axis nonspecific mediastinal lymph nodes. Liver: Left hepatic lobe cyst. Bones/joints: Unremarkable. No acute fracture. Soft tissues: Unremarkable. CT/CT angio chest PE protcl [id number] IMPRESSION: 1. Negative for pulmonary embolus. 2. Scattered subcentimeter short axis nonspecific mediastinal lymph nodes. 3. Cardiomegaly. 4. Left hepatic lobe cyst. 5. Bilateral dependent atelectasis.
[2024-04-27 21:25] LABS: Troponin(5th) Baseline 11 ng/L (0-15)
[2024-04-27] MEDS: iohexol 350 mg/mL 500 mL Btl (per mL) IV (21:25)
[2024-04-27 21:46] VITALS: BP 137/104; PULSE 78; RESP 25; O2SAT 95
[2024-04-27 21:59] LABS: Bilirubin Urine Negative (Negative); Blood Urine Negative (Negative); Glucose Urine UA Negative (Normal); Ketones Urine Negative (Negative); Leukocyte Esterase Urine Negative (Negative); Nitrate Urine Negative (Negative); Protein Urine Negative (Negative); Specific Gravity, Urine 1.021 (1.005-1.030); Urine Appearance Clear (CLEAR); Urine Color Yellow (Yellow)
[2024-04-27 22:04] LABS: Add Urine Microscopic? YES; Bacteria Urine None Seen /hpf; Hyaline Casts Urine 0-4 /lpf; RBC Urine 0-2 /hpf (0-2); Squamous Epithelial Cell Urine 0-5 /hpf (0-5); WBC Urine 0-5 /hpf (0-5)
[2024-04-27 22:42] LABS: Troponin 5 2HR 8.11 ng/L (0-15)
[2024-04-27 22:43] LABS: Troponin 5 2HR Delta -2.89 ABS# (0-10)
[2024-04-27 23:20] VITALS: BP 134/81; PULSE 80; RESP 16; O2SAT 95
== END 2024-04-27 23:23 | disposition home or self-care (01) ==
PROVIDERS: Emergency Medicine; Emergency Provider Physician Assistant
DX: I48.0 Paroxysmal atrial fibrillation (principal); I72.3 Aneurysm of iliac artery; Z79.01 Long term (current) use of anticoagulants; Z79.82 Long term (current) use of aspirin
CPT/HCPCS: 71045; 71275; 75635; 80053; 81001; 83690; 84484; 85025; 93005; 99285

== ENCOUNTER 2024-10-15 11:57 | Outpatient (CLI) | payer OTHER, MEDICARE, SELFPAY ==
--- NOTE | 2024-10-15 12:08 | CT_ITS ---
WS: [id number] CT ANGIOGRAPHY chest, abdomen and pelvis. HISTORY: AAA, S/P ENDOVASCULAR ANEURYSM REPAIR TECHNIQUE: CT angiogram is performed during IV injection. Reformation images reviewed. All CT scans at [facility] use at least one of these dose optimization techniques: automated exposure control; mA and/or kV adjustment per patient size (includes targeted exams where dose is matched to clinical indication); or iterative reconstruction. CONTRAST: Omnipaque 350; 100 mL IV. DLP: 2143.14 mGy.cm COMPARISON: 04/27/2024, 09/06/2023 Normal size ascending thoracic aorta with a diameter of 3.7 cm. Mild atherosclerotic plaque. No aneurysm or ulcerated plaque. No dissection. Normal origins the great vessels. Subclavian arteries are normal. Moderate cardiomegaly. No pericardial or pleural effusions. Chronic emphysema. No pulmonary mass or pneumonia. Stable mediastinal and hilar lymph nodes. Very small hiatal hernia. No chest wall abnormalities. Abdominal aorta: Status post aortobiiliac artery stent with excluded RIGHT iliac artery. Patient has a known large RIGHT iliac artery aneurysm extending over a length of 12.3 cm. Aneurysm abuts and displaces the RIGHT external iliac artery and stent. No obvious enhancement within the aneurysm sac. Known mildly aneurysmal celiac axis is stable. There is also very mild ectasia of the superior mesenteric artery to 1.0 cm. No enlarging abdominal aortic aneurysm. Again noted is decreased enhancement in the lower pole of each kidney on early arterial imaging. Stent covers the accessory arteries to the lower pole of each kidney. The extent of hypoenhancement has progressed but improves with delayed imaging. No change in the occluded LEFT iliac artery aneurysm. Decreased enhancement in the femoral arteries is probably due to phase of arterial enhancement. Small hypodensities in the liver cysts. Contracted gallbladder. Normal size spleen. No adrenal mass. Negative pancreas. No intrahepatic duct dilatation. No GI tract obstruction. No ascites or adenopathy. Mild sigmoid diverticulosis without acute diverticulitis. Prostate gland is enlarged encroaching upon the urinary bladder. Bilateral fat-containing inguinal canals. CT/CT [facility] abdpe [id number] IMPRESSION: 1. Status post aortobiiliac stent graft is stable. No enlargement of the aorta or leak. 2. Large occluded versus thrombosed RIGHT iliac artery aneurysm measuring 12.3 cm. 3. Excluded LEFT common iliac artery aneurysm. No progression in size. 4. No interval change in appearance of the celiac trunk aneurysm or ectasia of the proximal SMA. 5. Decreased enhancement involving the lower poles of each kidney. Progression of hypoenhancement due to occluded accessory arteries by the stent graft. On t he delayed images there is improved enhancement in the lower pole RIGHT renal c ortex. Still hypoenhancement lower pole LEFT kidney. 6. No thoracic aortic aneurysm. 7. Cardiomegaly.
[2024-10-15 12:34] LABS: Blood Urea Nitrogen 15 mg/dL (8-23)
[2024-10-15] MEDS: iohexol 350 mg/mL 500 mL Btl (per mL) IV (12:50)
== END 2024-10-15 11:58 | disposition home or self-care (01) ==
PROVIDERS: Visit Provider Surgery Vascular Surgery
DX: Z98.890 Other specified postprocedural states (principal); R93.89 Abnormal findings on diagnostic imaging of other specified body structures; I72.3 Aneurysm of iliac artery; I72.8 Aneurysm of other specified arteries; I51.7 Cardiomegaly; I70.90 Unspecified atherosclerosis; J43.8 Other emphysema; K44.9 Diaphragmatic hernia without obstruction or gangrene; K76.89 Other specified diseases of liver; K57.30 Diverticulosis of large intestine without perforation or abscess without bleeding; N40.0 Benign prostatic hyperplasia without lower urinary tract symptoms; K40.20 Bilateral inguinal hernia, without obstruction or gangrene, not specified as recurrent
CPT/HCPCS: 71275; 74174; 82565; 84520

== ENCOUNTER 2025-07-08 01:51 | Emergency (ER) | payer MEDICARE, SELFPAY ==
[2025-07-08] VITALS (19 sets, daily range): BP systolic 88–117; BP diastolic 46–73; PULSE 63–88; RESP 22; TEMP 36.7; O2SAT 90–100; BMI 27.1
--- NOTE | 2025-07-08 01:59 | XRR_ITS ---
PROCEDURE INFORMATION: Exam: XR Chest Exam date and time: 07/08/2025 2:07 AM Age: 75 years old Clinical indication: Pain and device placement; Other vascular access device placement or adjustment; Central line, non-tunnelled; Chest pressure; EMS arrival for chest pain. Check S/P central line placement. ; Additional info: Cp SOB TECHNIQUE: Imaging protocol: Radiologic exam of the chest. Views: 1 view. COMPARISON: CT angio chest PE protcl [id number] 04/27/2024 9:13 PM FINDINGS: Tubes, catheters and devices: Right IJ catheter terminates in the right atrium. Lungs: Unremarkable. No consolidation. Pleural spaces: Unremarkable. No pleural effusion. No pneumothorax. Heart/Mediastinum: Cardiomegaly. Bones/joints: Unremarkable. XR/XR chest 1V portable [id number] IMPRESSION: No pneumonia.
--- NOTE | 2025-07-08 01:59 | ECG_ITS ---
[employer] Test Date: 2025-07-08 Pat Name: Mariusz Ac Department: Room: Gender: Male Security Program Manager: : 1950 Requested By: Sarmad Kumari Order Number: [id number] Jasbir MD: Neeraj Mcfarland M.D. Measurements Intervals Wever Rate: 81 P: 0 NM: 0 QRS: -11 QRSD: 85 T: 245 QT: 400 QTc: 465 Interpretive Statements ATRIAL FIBRILLATION INDETERMINATE AXIS POSSIBLE RIGHT VENTRICULAR CONDUCTION DELAY [RSR (QR) IN V1/V2] MARKED ST DEPRESSION, CONSIDER SUBENDOCARDIAL INJURY [0.2+ mV ST DEPRESSION] ACUTE AK Compared to ECG 04/27/2024 20:56:05 Indeterminate axis now present ST (T wave) deviation now present Left-axis deviation no longer present Incomplete right bundle-branch block no longer present Electronically Signed On 07-09-2025 20:05:43 ELECTRONIC VIDEO GAMES SERVICER by Neeraj Mcfarland M.D. [email or web address]
--- OUTSIDE RECORDS SUMMARY | 2025-07-08 02:00 | XMS_ITS | Clinical Summary ---
Author Organization [facility] Address [address] 

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
--- OUTSIDE RECORDS SUMMARY | 2025-07-08 02:00 | XMS_ITS | Encounter Summary ---
Author Organization [facility] Address [address] [place] [address] Care Team Providers Care Prep Room Supervisor Name Role Phone Unavailable Primary Care Provider Unavailabl e Encounter Details Date Type Department Care Team (Late st Contact Info) Description 07/02/2003 Outpatient Historical [facility] Wound Care [address] 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
--- OUTSIDE RECORDS SUMMARY | 2025-07-08 02:00 | XMS_ITS | Encounter Summary ---
Author Organization [facility] Address [address] [place] [address] Care Team Providers Care Stone Dresser Name Role Phone Unavailable Primary Care Provider Unavailabl e Encounter Details Date Type Department Care Team (Latest Contact Info) Description 06/26/2003 Outpatient Historical [facility] [address] [address] [facility] [address] [place] [address] Sukhdeep Iqbal MD [address] [place] [address] SURGERY FOLLOWUP, UNSPEC (Primary Dx) Social History Tobacco Use Types Packs/Day Years Used Date Smoking Tobacco: Never Assessed Sex and Gender Information Value Date Recorded Sex Assigned at Not on file 

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
--- OUTSIDE RECORDS SUMMARY | 2025-07-08 02:00 | XMS_ITS | Encounter Summary ---
Author Organization [facility] Address [address] [place] [address] Care Team Providers Care Winch Driver Name Role Phone Unavailable Primary Care Provider Unavailabl e Encounter Details Date Type Department Care Team (Latest Contact Info) Description 05/15/2003 Outpatient Historical [facility] General and Trauma Surgery[facility] [address] [address] [place] [address] Sukhdeep Iqbal MD [address] [place] [address] SURGERY FOLLOWUP, UNSPEC (Primary Dx) Social History Tobacco Use Types Packs/Day Years Used Date Smoking Tobacco: Never Assessed Sex and Gender Information Value Date Recorded Sex Assigned at Not on file 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
--- OUTSIDE RECORDS SUMMARY | 2025-07-08 02:00 | XMS_ITS | Encounter Summary ---
Author Organization [facility] Address [address] [place] [address] Care Team Providers Care Center Sales And Service Associate Name Role Phone Unavailable Primary Care Provider Unavailabl e Encounter Details Date Type Department Care Team (Late st Contact Info) Description 06/01/2003 Outpatient Historical [facility] Wound Care [address] 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
--- NOTE | 2025-07-08 02:33 | CTR_ITS ---
PROCEDURE INFORMATION: Exam: CT Head Without Contrast Exam date and time: 07/08/2025 2:47 AM Age: 75 years old Clinical indication: Altered mental status/memory loss; EMS arrival for chest pain. Patient acting confused. ; Additional info: AMS TECHNIQUE: Imaging protocol: Computed tomography of the head without contrast. Radiation optimization: All CT scans at this facility use at least one of these dose optimization techniques: automated exposure control; mA and/or kV adjustment per patient size (includes targeted exams where dose is matched to clinical indication); or iterative reconstruction. COMPARISON: No relevant prior studies available. RADIATION DOSE METRICS: Total DLP (mGy-cm): 1251.33 FINDINGS: Brain: No acute intracranial hemorrhage. No midline shift or mass effect. No acute territorial infarct. Global age-related cerebral atrophy. 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 Cerebral ventricles: No ventriculomegaly. Paranasal sinuses: Visualized sinuses are unremarkable. No fluid levels. Mastoid air cells: Visualized mastoid air cells are well aerated. Bones: Unremarkable. No acute fracture. Soft tissues: Unremarkable. CT/CT head wo con* [id number] IMPRESSION: No acute intracranial hemorrhage. No midline shift or mass effect.
[2025-07-08] MEDS: norepinephrine 4 MG/250 ML BAG 11.25 MG IV (02:35)
--- NOTE | 2025-07-08 02:38 | CTR_ITS ---
PROCEDURE INFORMATION: Exam: CTA Chest With Contrast CTA Abdomen and Pelvis With Contrast Exam date and time: 07/08/2025 2:51 AM Age: 75 years old Clinical indication: Chest pressure; Prior surgery; Surgery date: 1-6 months; Surgery type: Repair of RT iliac aneurysm in may. Aaa endograft. EMS arrival C/O chest pain describing as tearing sensation. Surgery in may for RT iliac aneurysm. ; Additional info: Chest pain, HX of aneurysm surgery pelvis TECHNIQUE: Imaging protocol: Computed tomographic angiography of the chest with contrast. Exam focused on the arteries. Computed tomographic angiography of the abdomen and pelvis with contrast. Exam focused on the arteries. 3D rendering (Not supervised by radiologist): MIP and/or 3D reconstructed images were created by the technologist. Radiation optimization: All CT scans at this facility use at least one of these dose optimization techniques: automated exposure control; mA and/or kV adjustment per patient size (includes targeted exams where dose is matched to clinical indication); or iterative reconstruction. Contrast material: OMNI 350; Contrast volume: 100 ml; Contrast route: INTRAVENOUS (IV); COMPARISON: CT [facility] abdpe [id number] 10/15/2024 12:32 PM RADIATION DOSE METRICS: Total DLP (mGy-cm): 1890.13 FINDINGS: VASCULATURE: Pulmonary arteries: No pulmonary embolism. 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 There is extension into the innominate, left common carotid artery, and left subclavian artery. No pericardial effusion. This dissection does not extend into the descending thoracic aortic arch or descending thoracic aorta. Aortoiliac stent graft of the abdominal aorta. 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 Minimally decreased perfusion of the right femoral artery, relative to the left. Celiac and mesenteric arteries: No occlusion or significant stenosis. Renal arteries: No occlusion or significant stenosis. Right iliac arteries: See Aorta finding. Left iliac arteries: No occlusion or significant stenosis. CHEST: Lungs: Atelectasis at the lung bases. Atelectasis at the lung bases. Pleural spaces: Unremarkable. No pneumothorax. No pleural effusion. Heart: See Aorta finding. Coronary arteries: The dissection flap at the origin mildly compresses the right coronary artery. Contrast is present in the right coronary artery. ABDOMEN AND PELVIS: Liver: Left hepatic cyst measures 1.9 cm. Gallbladder and biliary ducts: Unremarkable. No calcified stones. No ductal dilation. Pancreas: Unremarkable. No mass. No ductal dilation. Spleen: Unremarkable. No splenomegaly. Adrenal glands: Unremarkable. No mass. Kidneys and ureters: Unremarkable. No solid mass. No hydronephrosis. Stomach and bowel: Unremarkable. No obstruction. No mucosal thickening. Appendix: No evidence of appendicitis. Intraperitoneal space: Unremarkable. No free air. No significant fluid collection. Urinary bladder: Unremarkable. No mass. Reproductive: Unremarkable as visualized. Lymph nodes: Unremarkable. No enlarged lymph nodes. Bones/joints: Unremarkable. No acute fracture. Soft tissues: Unremarkable. CT/[facility] [id number] IMPRESSION: 1. 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 There is extension into the innominate, left common carotid artery, and left subclavian artery. No pericardial effusion. 2. The dissection flap at the origin mildly compresses the right coronary artery. Contrast is present in the right coronary artery. 3. This dissection does not extend into the descending thoracic aortic arch or descending thoracic aorta. 4. Aortoiliac stent graft of the abdominal aorta. 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 Minimally decreased perfusion of the right femoral artery, relative to the left. 5. No pulmonary embolism. COMMENT: THIS REPORT CONTAINS FINDINGS THAT MAY BE CRITICAL TO PATIENT CARE. The exam findings were verbally communicated by me to TEODORA ZHAO via telephone conference at 3:21 AM KNOCKOUT WORKER on 07/08/2025. The findings were acknowledged and understood.
[2025-07-08 02:41] LABS: Hematocrit 35.7 % (37-53); Hemoglobin 11.60 g/dL (11.27-16.99); Mean Corpuscular HGB Conc 32.5 g/dL (30-55); Mean Corpuscular Hemoglobin 31.9 pg (27-33); Mean Corpuscular Volume 98.1 fl (82-101); Nucleated Red Blood Cells % 0 %; Platelet Count 175 10^3/cmm (157-399); Red Blood Count 3.64 10^6/uL (3.85-5.65); White Blood Count 7.39 10^3/uL (3.29-11.43)
--- NOTE | 2025-07-08 02:48 | W.ED.CHESTPA ---
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 This was repaired 1 month ago. He presents with chest pain. His notes that he awoke with chest discomfort, got up and had to crawl back to bed. He seemed confused to her and generally weak. He was short of breath as well. Ambulance was called. He complained of chest pain on EMS arrival. He was not given aspirin or other anticoagulants due to his recent aortic aneurysm repair history. He continues to complain of chest pain, although his mental status is altered, and he is not answering questions other than yes or no at this point. His blood pressure has been low. He has 1 IV access in the left forearm, and IV access has been difficult. Related Data Home Medications ?Medication ?Instructions ?Recorded ?Confirmed apixaban 5 mg tablet (Eliquis) 5 mg PO BID 01/05/24 aspirin 81 mg tablet,delayed 81 mg PO DAILY 01/05/24 release metoprolol tartrate 25 mg tablet 12.5 mg PO BID 01/05/24 Allergies Allergy/AdvReac Type Severity Reaction Status Date / Time No Known Allergies Allergy Verified 04/27/24 20:09 COMM[facility]ITY [facility] ED [facility]: Medical History (Updated 07/08/25 @ 05:37 by Sarmad Manzanares DO) Aneurysm of internal iliac artery Social History Smoking and tobacco/nicotine status: never used tobacco/nicotine Physical Exam Const: EXAM LIMITATIONS: altered mental status GENERAL APPEARANCE: cooperative, in distress, lethargic and ill appearing ORIENTATION/CONSCIOUSNESS: Yes awake, Yes oriented to person, Yes oriented to place, Yes confused and Yes lethargic; not oriented to time HENMT: COMMON NORMALS: normocephalic, atraumatic and Normal external nose present HEAD & SCALP: normocephalic and atraumatic NOSE: Normal external nose present and Normal nares present Eye: COMMON NORMALS: Equal, round and reactive pupils present and EOMs intact bilaterally PUPIL: Yes Equal, round and reactive pupils present Neck/C-Spine: CERVICAL SPINE: Yes cervical ROM normal Chest: CHEST: Yes Symmetrical chest wall rise Resp: COMMON NORMALS: clear to auscultation bilaterally EFFORT & INSPECTION: Yes tachypneic and No respiratory distress AUSCULTATION: clear to auscultation bilaterally Cardio: COMMON NORMALS: regular rate and regular rhythm RATE: regular rate RHYTHM: regular rhythm GI: OTHER: RLQ incision is healed, no redness, mass, induration. No distension. no discernable tenderness. Neuro: KAMERON COMA SCALE: document GCS findings [place] coma scale eye opening: Spontaneous Kameron coma scale verbal response: Confused [place] coma scale motor response: Obey commands Kameron coma scale total score: 14 SENSORIUM/ORIENTATION: Yes oriented to person, Yes oriented to place, No oriented to time and Yes lethargic SPEECH: abnormal speech Details: garbled and stuttering SENSORY EXAM: Yes extremities (normal) MOTOR EXAM: Motor abnormalities not present and No Abnormal motor strength present Procedures Central Line Placement Right IJ: Time Out Performed: No Patient Placed on Monitor/Pulse Ox: Yes MD Prep: mask and gloves Central Line Prep: Chlorhexidine scrub Local Anesthetic: lidocaine 1% Amount of anesthesia used (mL): 3 Ultrasound Used for Placement: Yes Central Line Lumen Inserted: triple Post Procedure: sutured in place, good blood return, all ports aspirated, flushed, capped and sterile dressing applied Post Procedure X-Ray: tip of catheter in good position and no pneumothorax seen Patient Tolerated Procedure: well and no complications Complications: none Course Vital Signs: Vital signs: Vital Signs Temperature 98.1 F 07/08/25 01:59 Pulse Rate 80 07/08/25 05:13 Respiratory Rate 22 H 07/08/25 01:50 Blood Pressure 110/65 07/08/25 05:13 Pulse Oximetry 95 07/08/25 05:13 Oxygen Delivery Wv thod Nasal Cannula 07/08/25 03:55 Oxygen Flow Rate 4 07/08/25 03:55 MDM - Chest Pain Medical Decision Making EKG done on the patient's arrival was concerning for lateral ST wave depression with T wave inversion that is significant. I sent images EKG to cardiology, and consulted him. The patient does not meet true diagnosis criteria for STEMI, so it was advised to wait for preliminary labs. His blood pressure has been low, and IV access was difficult. Central line placed in the right IJ by me without complication.It appears to be in the right atrium on x-ray. X-ray shows pulmonary vascular congestion otherwise. Levophed was started at 3. Blood pressure is improved. Last blood pressure 97/68. White blood cell count is 7.4 with a hemoglobin of 11.6. Other laboratories pending. Patient is in CT currently getting CT of head for altered mental status, as well as CTA of the chest abdomen pelvis given his history of vascular problems. He is given aspirin, but Plavix and heparin are held currently. He is not anticoagulated according to his family. Patient is back from CTA. He is talking more now. His pain is improved. He is on Levophed at 3, current systolic blood pressure 114. Heart rate 79. We are turning his Levophed down to 1. CTA shows aortic root dissection that mildly compresses the right coronary artery there is contrast present in the right coronary artery. Dissection does not extend into the descending thoracic aorta arch or descending thoracic aorta. Minimally decreased perfusion in the right femoral artery relative to the left. We spoke with [facility] regarding transfer, as we do not have a CT surgeon at this facility. They declined, stating that their surgeon could not handle the root dissection of this nature, and requested transfer to [facility]. We spoke with [facility] in [place] as well, as they are the closest facility otherwise. They declined, as they only had 1 chest surgeon on-call, and he was in surgery. I spoke with Dr. Romero, CT surgeon at [facility]. He has graciously agreed to accept the patient, but notes that due to the nature of the dissection, and the distance of transfer, this patient's mortality rate is very high and it would be best to transfer to a closer facility. I spoke with [facility] in [place], which is only an hour away by Road, and their facility cannot handle this type of dissection either. For this facility, [place] is the same road distance is [place]. We have elected to go ahead with transfer to [facility] in [place]. I spoke with the ER. They have accepted the transfer as an ER to ER transfer. OR team will be contacted there. We spoke with multiple air transport services, all have declined due to icing. He will have to go by ground. He is back up to 3 on Levophed. He is on 4 L nasal cannula satting 95%. Blood pressure is 110 systolic. Heart rate is 80. He is still talking. He does not appear short of breath. Of note, the patient's family, including his , were made aware of the dire nature of his condition, the hazards of transfer, especially prolonged road transfer, and the lack of ability of closer facilities to accommodate the patient's care. They are in agreement for transfer to the [facility] lacking any other options. Lab Data 07/08/25 02:31 12 02:31 Radiology Impressions Chest X-Ray 07/08/25 01:59 IMPRESSION: No pneumonia. Head CT 07/08/25 02:33 IMPRESSION: No acute intracranial hemorrhage. No midline shift or mass effect. Chest/Abdomen/Pelvis CTA 07/08/25 02:38 IMPRESSION: 1. Positive for [place] type a dissection, which originates in the aortic root. There is extension into the innominate, left common carotid artery, and left subclavian artery. No pericardial effusion. 2. The dissection flap at the origin mildly compresses the right coronary artery. Contrast is present in the right coronary artery. 3. This dissection does not extend into the descending thoracic aortic arch or descending thoracic aorta. 4. Aortoiliac stent graft of the abdominal aorta. 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 Minimally decreased perfusion of the right femoral artery, relative to the left. 5. No pulmonary embolism. COMMENT: THIS REPORT CONTAINS FINDINGS THAT MAY BE CRITICAL TO PATIENT CARE. The exam findings were verbally communicated by me to SARMAD MANZANARES via telephone conference at 3:21 AM FLUE CLEANER on 07/08/2025. The findings were acknowledged and understood. Laboratory Results WBC 7.39 10^3/uL (3.29-11.43) 07/08/25 02:31 RBC 3.64 10^6/uL (3.85-5.65) L 07/08/25 02:31 Hgb 11.60 g/dL (11.27-16.99) 07/08/25 02: Hct 35.7 % (37-53) L 07/08/25 02:31 MCV 98.1 fl (82-101) 07/08/25 02: MCH 31.9 pg (27-33) 07/08/25 02: MCHC 32.5 g/dL (30-55) 07/08/25 02: RDW 13.0 % (12.1-15.1) 07/08/25 02:31 Plt Count 175 10^3/cmm (157-399) 07/08/25 02:31 MPV 10.2 fL (7.4-10.4) 07/08/25 02:31 Neut % (Auto) 78.6 % 07/08/25 02:31 Lymph % (Auto) 10.8 % 07/08/25 02:31 Sabine % (Auto) 8.3 % 07/08/25 02:31 Eos % (Auto) 1.2 % 07/08/25 02:31 Baso % (Auto) 0.3 % 07/08/25 02:31 Neut # (Auto) 5.81 10^3/uL (1.8-7.7) 07/08/25 02:31 Lymph # (Auto) 0.8 10^3/uL (0.8-4.8) 07/08/25 02:31 Sabine # (Auto) 0.6 10^3/uL (0.2-0.9) 07/08/25 02:31 Eos # (Auto) 0.1 10^3/uL (0.0-0.8) 07/08/25 02:31 Baso # (Auto) 0.0 10^3/uL (0.0-0.1) 07/08/25 02:31 Nucleated RBC % (auto) 0 % 07/08/25 02:31 Nucleated RBCs # 0.0 /100WBC 07/08/25 02:31 PT 15.40 SECONDS (12.1-14.9) H 07/08/25 02:31 INR 1.14 (0.8-1.2) 07/08/25 02:31 APTT 35.2 SECONDS (23.9-36.7) 07/08/25 02:31 Specimen Type Arterial 07/08/25 02:38 Sample Site Brachial, right 07/08/25 02:38 ABG pH 7.62 (7.35-7.45) H* 07/08/25 02:38 ABG pCO2 17.1 mmHg (35-45) L* 07/08/25 02:38 ABG pO2 89.1 mmHg (80.0-100.0) 07/08/25 02:38 ABG HCO3 17.7 mmol/L (22-26) L 07/08/25 02:38 ABG Base Excess -1.1 mmol/L (-2.0-2.0) 07/08/25 02:38 Dereck Test N/a 07/08/25 02:38 Hematocrit 39.1 % (42-52) L 07/08/25 02:38 O2 Delivery Device Nc 07/08/25 02:38 O2 Liters/Min 2.0 % 07/08/25 02:38 Documentation Spec ID [id number] 07/08/25 02:38 Sodium 140 mmol/L (136-145) 07/08/25 02:31 Potassium 3.9 mmol/L (3.5-5.1) 07/08/25 02:31 Chloride 109 mmol/L (98-107) H 07/08/25 02:31 Carbon Dioxide 20 mmol/L (22-29) L 07/08/25 02:31 Anion Gap 14.9 (5-19) 07/08/25 02:31 BUN 19 mg/dL (8-23) 07/08/25 02:31 Creatinine 1.0 mg/dL (0.7-1.2) 07/08/25 02:31 GFR Calculation Not Reportable 07/08/25 02:31 Glucose 110 mg/dL (65-115) 07/08/25 02:31 Calculated Osmolality 293 mOsm/kg (285-295) 07/08/25 02:31 Lactic Acid 2.4 mmol/L (0.5-2.2) H 07/08/25 02:31 Calcium 7.9 mg/dL (8.5-10.5) L 07/08/25 02:31 Total Bilirubin 0.6 mg/dL (0.15-1.2) 07/08/25 02:31 AST 18 U/L (0-40) 07/08/25 02:31 ALT 10 U/L (0-41) 07/08/25 02:31 Alkaline Phosphatase 73 U/L (40-130) 07/08/25 02:31 Troponin T Baseline 38 ng/L (0-15) H 07/08/25 02:31 NT-Pro-B Natriuret Pep 771 pg/mL (0-125) H 07/08/25 02:31 Total Protein 5.5 g/dL (6.6-8.7) L 07/08/25 02:31 Albumin 3.6 g/dL (3.5-5.2) 07/08/25 02:31 Globulin 1.9 g/dL (1.3-4.6) 07/08/25 02:31 All radiology interpretation(s) finalized by discharge Critical Care Time Critical Care Time: Critical Care Time: Yes Total Critical Care Time: 60 Attestation: This case had a high probability of a clinically significant, sudden, or life threatening deterioration of this patient's condition which required my full and direct attention, intervention and personal management. Time is independent of any procedures performed. Discharge Plan Discharge Patient Disposition: Transfer to ED Clinical Impression: Ascending aortic dissection Condition: Stable Prescriptions: No Action Eliquis 5 mg tablet 5 mg PO BID metoprolol tartrate 25 mg tablet 12.5 mg PO BID aspirin 81 mg tablet,delayed release (DR/EC) 81 mg PO DAILY Print Language: St Helenian Coding Level of Care Code ED Watch Hairspring Assembler for Chg Avril Heart Score HEART Score Components History: Moderately Suspicious EKG: Significant ST-deviation Age: 65 or more yrs Risk Factors: >/=3 Risk Factors Troponin: Baseline Trop 16-45 ng/L HEART Score RESULT HEART Score: 8
[2025-07-08 02:50] LABS: ABG PCO2 17.1 mmHg (35-45); ABG PH Result 7.62 (7.35-7.45); Arterial Blood Gas Hematocrit 39.1 % (42-52); Blood Gas LPM 2.0 %; Blood Gas Sample Site Brachial, right; Blood Gas Sample Type Arterial; HCO3 ABG 17.7 mmol/L (22-26); PO2 ABG 89.1 mmHg (80.0-100.0)
[2025-07-08 02:53] LABS: INR 1.14 (0.8-1.2); Prothrombin Time 15.40 SECONDS (12.1-14.9)
[2025-07-08 02:54] LABS: Partial Thromboplastin Time 35.2 SECONDS (23.9-36.7)
[2025-07-08 03:03] LABS: Lactic Sepsis W/Reflex 2.4 mmol/L (0.5-2.2)
[2025-07-08] MEDS: iohexol 350 mg/mL 500 mL Btl (per mL) IV (03:03)
[2025-07-08 03:04] LABS: Troponin(5th) Baseline 38 ng/L (0-15)
[2025-07-08 03:08] LABS: Alanine Aminotransferase 10 U/L (0-41); Albumin Level 3.6 g/dL (3.5-5.2); Alkaline Phosphatase 73 U/L (40-130); Anion Gap 14.9 (5-19); Aspartate Amino Transferase 18 U/L (0-40); Blood Urea Nitrogen 19 mg/dL (8-23); Calcium 7.9 mg/dL (8.5-10.5); Carbon Dioxide 20 mmol/L (22-29); Chloride 109 mmol/L (98-107); Globulin 1.9 g/dL (1.3-4.6); Glucose 110 mg/dL (65-115); Osmolality Calculated 293 mOsm/kg (285-295); Potassium 3.9 mmol/L (3.5-5.1); Sodium 140 mmol/L (136-145); Total Protein 5.5 g/dL (6.6-8.7)
[2025-07-08 03:13] LABS: NT Pro B Type Natriuretic Pept 771 pg/mL (0-125)
[2025-07-08 04:23] LABS: Reflex Lactate Order REFLEX LACTIC ORDERD
[2025-07-09 19:13] LABS: Bacillus cereus group Not Detected (NOT DETECT); Bacillus subtillis group Not Detected (NOT DETECT); Corynebacterium Not Detected (NOT DETECT); Cutibacterium acnes (P.acnes) Not Detected (NOT DETECT); Enterococcus faecalis Not Detected (NOT DETECT); Enterococcus faecium Not Detected (NOT DETECT); Listeria Not Detected (NOT DETECT); Micrococcus Not Detected (NOT DETECT); Pan Candida Not Detected (NOT DETECT); Pan Gram-Negative Not Detected (NOT DETECT); Staphylococcus epidermidis Detected (NOT DETECT); Staphylococcus lugdunensis Not Detected (NOT DETECT); Staphylococcus species Detected (NOT DETECT); Streptococcus anginosus group Not Detected (NOT DETECT); Streptococcus pyogenes Not Detected (NOT DETECT); Streptococcus species Not Detected (NOT DETECT); mecA Not Detected (NOT DETECT); mecC Not Detected (NOT DETECT)
== END 2025-07-08 05:17 ==
PROVIDERS: Emergency Provider Emergency Medicine
DX: I71.010 Dissection of ascending aorta (principal); Z79.82 Long term (current) use of aspirin; Z79.01 Long term (current) use of anticoagulants
CPT/HCPCS: 36556; 36600; 70450; 71045; 71275; 74174; 80053; 82803; 83605; 83880; 84484; 85025; 85610; 85730; 87040; 87077; 87150; 87186; 87205; 93005; 96361; 96365; 99285; 99291; 99292; J7030; J9999